=== PATIENT | female | born 2000 | race African-American/Black ===

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

== ENCOUNTER 2020-11-01 15:21 | Emergency (ER) | payer SELFPAY ==
[~2020-11-01] VITALS: Ht 162.6 cm; Wt 75.0 kg
[~2020-11-01 15:21] MED LIST: METH4TAB2 PO; TRIA15CR TP
--- NOTE | 2020-11-01 16:13 | EKG ---
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
[2020-11-01] MEDS ORDERED: ONDANSETRON PF 4 MG/2 ML VIAL. IV ONE (16:30)
[2020-11-01] MEDS ORDERED: IV NORMAL SALINE 1000ML BAG 1,000 ML IV ONE (16:30)
[2020-11-01] MEDS ORDERED: diphenhydrAMINE 50 MG/ML VIAL IVP ONE (16:45)
[2020-11-01] MEDS ORDERED: PROCHLORPERAZINE 10 MG/2 ML VIAL. IV ONE (16:45)
[2020-11-01] MEDS ORDERED: DEXAMETHASONE SOD PHOS 20 MG/5 ML VIAL. IV ONE (16:45)
--- NOTE | 2020-11-01 17:18 | RAD ---
CT HEAD/BRAIN WO Date: 11/01/2020 4:47 PM Clinical Indication: headache / Spl. Instructions: / History: Comparison: None. Technique: 5 mm axial tomographic images were obtained of the head without contrast. These were view ed on brain and bone windows. One or more of the following dose reduction techniques were utilized: A utomated exposure control (AEC), Adjustment of mA and/or kV according to patient size, Use of iterati ve reconstruction technique such as ASiR, CT scan done according to ALARA and image gently/image elizondo ly Findings: The brain parenchyma is normal in attenuation. No intra- or extra-axial mass or fluid collection. No acute hemorrhage. The ventricles are normal in size, shape, and morphology. The luis-white matter bhumika ction is normal. The subarachnoid cisterns are patent. Paranasal sinus disease with air-fluid levels in the maxillary sinuses and secretions in the frontal sinuses. The visualized portions of the orbits and globes are normal. The mastoid air cells are kenneth r. The cst topogram shows no lytic lesion or fracture. Impression: 1. No acute intracranial process. 2. Paranasal sinus disease with air-fluid levels in the maxillary sinuses and frothy secretions in th e frontal sinuses, which could represent acute sinusitis in the appropriate clinical setting Electronically signed by: Shekhar Wilson MD (11/01/2020 5:15 PM) [facility]
--- NOTE | 2020-11-01 17:37 | ED.ADGEN ---
Past Medical History Past Medical History: Migraines Additional Past Medical Histor: SYNCOPAL EPISODES Past Surgical History: Other Additional Past Surgical Histo: HERNIA Smoking Status: Current Every Day Smoker Alcohol Use: Occasionally Drug Use: None General Adult EDM: Chief Complaint: SYNCOPE HPI: HPI: Patient is a 20 year old female who presents emergency department via EMS after suffering a syncopal episode today while working at [employer]. The patient states she has had a headache in the front of her head with sensitivity to light all day. She states she was watching videos at work when she got up to get some water and the next thing she knew she was on the floor. Coworkers called the ambulance. Patient reports that the loss of consciousness was less than 1 minute. She reports having some nausea with a headache but denies any vomiting, body aches, fever, shortness of breath, cough, chest pain, abdominal pain, diarrhea, rash, or sore throat. She currently rates pain a 9 out of 10 on the pain scale, she denies any alleviating factors, light makes the pain worse. She denies any recent head injury or trauma. She denies any previous history of migraines. Review of Systems: Review of Systems: Complete ROS is negative unless otherwise noted in HPI. Current Medications: Current Medications Medications (Trade) Dose Ordered Sig/Luis Start Time Stop Time Status Last Admin Dose Admin Dexamethasone Sodium Phosphate (Decadron) 10 mg 1X ONCE 11/01/20 16:45 11/01/20 16:46 DC 11/01/20 16:50 10 MG Diphenhydramine HCl (Benadryl) 25 mg 1X ONCE 11/01/20 16:45 11/01/20 16:46 DC 11/01/20 16:50 25 MG Ketorolac Tromethamine (Toradol 30mg Vial) 30 mg 1X ONCE 11/01/20 18:30 11/01/20 18:39 DC 11/01/20 18:55 30 MG Ondansetron HCl (Zofran) 4 mg 1X ONCE 11/01/20 16:30 11/01/20 16:31 DC 11/01/20 16:49 4 MG Prochlorperazine Edisylate (Compazine) 10 mg 1X ONCE 11/01/20 16:45 11/01/20 16:46 DC 11/01/20 16:50 10 MG Sodium Chloride 1,000 ml @ 1,000 mls/hr 1X ONCE 11/01/20 16:30 11/01/20 17:29 DC 11/01/20 16:51 1,000 MLS/HR Allergies: Allergies: Allergies Coded Allergies Type Severity Reaction Last Updated Verified No Known Drug Allergies 06/30/13 No Physical Exam: PE: See Above Constitutional: Well developed, well nourished, no acute distress, non-toxic appearance. [] HENT: Normocephalic, atraumatic, bilateral external ears normal, oropharynx moist, no oral exudates, nose normal. [] Eyes: PERRLA, EOMI, conjunctiva normal, no discharge. [] Neck: Normal range of motion, no tenderness, supple, no stridor. [] Cardiovascular:Heart rate regular rhythm, no murmur [] Lungs & Thorax: Bilateral breath sounds clear to auscultation [] Abdomen: Bowel sounds normal, soft, no tenderness, no masses, no pulsatile masses. [] Skin: Warm, dry, no erythema, no rash. [] Back: No tenderness, no CVA tenderness. [] Extremities: No tenderness, no cyanosis, no clubbing, ROM intact, no edema. [] Neurologic: Alert and oriented X 3, normal motor function, normal sensory function, no focal deficits noted. [] Psychologic: Affect normal, judgement normal, mood normal. [] Current Patient Data: Labs: Laboratory Tests Test 11/01/20 16:33 POC Urine HCG, Qualitative Hcg negative (Negative) Vital Signs: Vital Signs Date Time Temp Pulse Resp B/P (MAP) Pulse Ox O2 Delivery O2 Flow Rate FiO2 11/01/20 18:39 66 16 109/69 (82) 99 Room Air 11/01/20 16:41 98.1 98.1 EKG: EK-sinus rhythm, rate 70, no STEMI, read by Dr. Lee [] Heart Score: C/O Chest Pain: No Risk Scores: Score 0 - 3: 2.5% MACE over next 6 weeks - Discharge Home Score 4 - 6: 20.3% MACE over next 6 weeks - Admit for Clinical Observation Score 7 - 10: 72.7% MACE over next 6 weeks - Early Invasive Strategies Radiology/Procedures: Radiology/Procedures: PROCEDURE: CT HEAD WO CONTRAST CT HEAD/BRAIN WO Date: 11/01/2020 4:47 PM Clinical Indication: headache / Spl. Instructions: / History: Comparison: None. Technique: 5 mm axial tomographic images were obtained of the head without contrast. These were viewed on brain and bone windows. One or more of the following dose reduction techniques were utilized: Automated exposure control (AEC), Adjustment of mA and/or kV according to patient size, Use of iterative reconstruction technique such as ASiR, CT scan done according to ALARA and image gently/image wisely Findings: The brain parenchyma is normal in attenuation. No intra- or extra-axial mass or fluid collection. No acute hemorrhage. The ventricles are normal in size, shape, and morphology. The luis-white matter junction is normal. The subarachnoid ci sterns are patent. Paranasal sinus disease with air-fluid levels in the maxillary sinuses and secretions in the frontal sinuses. The visualized portions of the orbits and globes are normal. The mastoid air cells are clear. 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 Impression: 1. No acute intracranial process. 2. Paranasal sinus disease with air-fluid levels in the maxillary sinuses and frothy secretions in the frontal sinuses, which could represent acute sinusitis in the appropriate clinical setting Electronically signed by: Shekhar Wilson MD (11/01/2020 5:15 PM) [facility] [] Course & Med Decision Making: Course & Med Decision Making Pertinent Labs and Imaging studies reviewed. (See chart for details) Patient is a 20-year-old female who presents to the emergency department evaluation following a syncopal episode. Patient reported having headache all day. CT the patient's head was negative. The patient was given a liter normal saline, 4 mg of Zofran, 10 mg of Compazine, 25 mg of Benadryl, and 10 mg of Decadron. Headache decreased to about a 7 out of 10 after those medications. Patient was given 30 mg IV Toradol and her headache went away completely. Patient was encouraged to follow-up with her primary care doctor in the next 1 to 2 days, go home and rest in a cool dark room. Return to the ER symptoms wo rsen. Patient verbalized an understanding of home care, medications, follow-up, and return to ED instructions and was in agreement with the plan of care. [] Lena Disclaimer: Dragon Disclaimer: This electronic medical record was generated, in whole or in part, using a voice recognition dictation system. Departure Departure Impression: Primary Impression: Headache Disposition: 01 HOME / SELF CARE / HOMELESS Condition: STABLE Referrals: NO PCP (PCP) Patient Instructions: General Headache Without Cause, [id number] Additional Instructions: Go home and rest in a cool dark room, limit exposure to screens, he can take Tylenol or ibuprofen as needed for pain. Follow-up with your primary care doctor in the next 1 to 2 days, return to the ER symptoms worsen. [facility] [address] [place] [address] [facility] [address] [place] [address] [facility] [address] [facility] [place] [address] [facility] [address] [place] [address] [facility] [address] [place] [address] [facility] [address] [place] [address] [facility]um[facility] [address] [place] [address] [facility] [address] [place] [address] [facility] [address] [place] [address] [facility] [address] [place] [address] Problem Qualifiers Primary Impression: Headache Headache type: unspecified Headache chronicity pattern: acute headache Intractability: not intractable Qualified Codes: R51.9 - Headache, unspecified RUDDY VINCENT EFFICIENCY MINER November 01, 2020 17:36
[2020-11-01] MEDS ORDERED: KETOROLAC 30 MG/ML VIAL. IV ONE (18:30)
[2020-11-01 18:39] VITALS: BP 109/69
== END 2020-11-01 19:22 | disposition home or self-care (01) ==
LOC: ER 15:21
DX: R51.9 Headache, unspecified (principal); F17.290 Nicotine dependence, other tobacco product, uncomplicated
CPT/HCPCS: 70450; 81025; 93005; 96361; 96374; 96375; 99285; J0780; J1100; J1200; J1885; J2405; J7030

== ENCOUNTER 2021-05-02 15:21 | Emergency (ER) | payer SELFPAY ==
[~2021-05-02] VITALS: Ht 162.6 cm; Wt 65.9 kg
[2021-05-02] MEDS ORDERED: IV NORMAL SALINE 1000ML BAG 1,000 ML IV ONE (15:45)
[2021-05-02 16:02] LABS: BASO % 1 % (0-3); EOS # 0.1 x10^3/uL (0.0-0.7); EOS % 2 % (0-3); HEMATOCRIT 34.6 % (36.0-47.0); HEMOGLOBIN 11.8 g/dL (12.0-15.5); LYMPH # 2.6 x10^3/uL (1.0-4.8); LYMPH % 51 % (24-48); MEAN CORPUSCULAR HEMOGLOBIN 28 pg (25-35); MEAN CORPUSCULAR HGB CONC 34 g/dL (31-37); MEAN CORPUSCULAR VOLUME 83 fL (79-100); MONO # 0.3 x10^3/uL (0.0-1.1); MONO % 6 % (0-9); NEUT % 40 % (31-73); PLATELET COUNT 268 x10^3/uL (140-400); RED BLOOD COUNT 4.15 x10^6/uL (3.50-5.40); RED CELL DISTRIBUTION WIDTH 12.5 % (11.5-14.5); WHITE BLOOD COUNT 5.1 x10^3/uL (4.0-11.0)
--- NOTE | 2021-05-02 16:04 | PHYS DOC ---
Past Medical History Past Medical History: Migraines Additional Past Medical Histor: SYNCOPAL EPISODES Past Surgical History: Other Additional Past Surgical Histo: HERNIA Smoking Status: Current Every Day Smoker Alcohol Use: Occasionally Drug Use: None General Adult EDM: Chief Complaint: SYNCOPE HPI: HPI: Patient is a 21 year old female who presents with states she was at work and went to get a drink and then she put her drink back down and went to walk away when she suddenly got dizzy and her vision went black. She states the next and she remembers is people standing over her on the floor. She is not on any kind of blood thinner. She denies headache, dizziness at this time, nausea, vomiting, chest pain, patient change, shortness of air, fever, cough, abdominal pain, diarrhea, focal weakness, numbness or tingling. She denies she is been sick recently. She denies feeling bad prior to this event. She denies any pain at this time. Patient has a history of syncopal episodes, migraines, hernia repair, smoking. Review of Systems: Review of Systems: Constitutional: Denies fever or chills. [] Eyes: Denies change in visual acuity. [] HENT: Denies nasal congestion or sore throat. [] Respiratory: Denies cough or shortness of breath. [] Cardiovascular: Denies chest pain or edema. [] GI: Denies abdominal pain, nausea, vomiting, bloody stools or diarrhea. [] : Denies dysuria. [] Musculoskeletal: Denies back pain or joint pain. [] Integument: Denies rash. [] Neurologic: Denies headache, focal weakness or sensory changes. +Syncope [] Endocrine: Denies polyuria or polydipsia. [] Lymphatic: Denies swollen glands. [] Psychiatric: Denies depression or anxiety. [] Heart Score: C/O Chest Pain: No Current Medications: Current Medications Medications (Trade) Dose Ordered Sig/Luis Start Time Stop Time Status Last Admin Dose Admin Sodium Chloride 1,000 ml @ 1,000 mls/hr 1X ONCE 05/02/21 15:45 05/02/21 16:44 Allergies: Allergies: Allergies Coded Allergies Type Severity Reaction Last Updated Verified No Known Drug Allergies 06/30/13 No Physical Exam: PE: Constitutional: Well developed, well nourished, no acute distress, non-toxic appearance. [] HENT: Normocephalic, atraumatic, bilateral external ears normal, oropharynx moist, no oral exudates, nose normal. [] Eyes: PERRLA, EOMI, conjunctiva normal, no discharge. [] Neck: Normal range of motion, no tenderness, supple, no stridor. [] Cardiovascular:Heart rate regular rhythm, no murmur [] Lungs & Thorax: Bilateral breath sounds clear to auscultation [] Abdomen: Bowel sounds normal, soft, no tenderness, no masses, no pulsatile masses. [] Skin: Warm, dry, no erythema, no rash. [] Back: No tenderness, no CVA tenderness. [] Extremities: No tenderness, no cyanosis, no clubbing, ROM intact, no edema. [] Neurologic: Alert and oriented X 3, normal motor function, normal sensory function, no focal deficits noted. [] Psychologic: Affect normal, judgement normal, mood normal. [] Normal physical exam EKG: EK and read by Dr. Villa as a sinus rhythm and no STEMI Radiology/Procedures: Radiology/Procedures: [] Impression: [facility] [address] [place] [address] IMAGING REPORT Signed PATIENT: ROCHELLE SARGENT AACCOUNT: [id number] : 2000 LOCATION: ER AGE: 21 SEX: F EXAM STATUS: REG ER ORD. PHYSICIAN: JUAN MERCEDES APRN REASON: syncope and fall to ground PROCEDURE: CT HEAD AND CERVICAL SPINE WO STUDY: CT head and cervical spine without contrast INDICATION: Syncope. Fall. COMPARISON: CT head 11/01/2020 TECHNIQUE: Axial CT imaging through the head and cervical spine without the use of intravenous contrast. Sagittal and coronal reformats were obtained. One or more of the following individualized dose reduction techniques were utilized for this examination: 1. Automated exposure control 2. Adjustment of the mA and/or kV according to patient size 3. Use of iterative reconstruction technique. FINDINGS: CT head: No acute intracranial hemorrhage. Pino-white matter differentiation is mainta ined. No localized mass effect, midline shift or hydrocephalus. Unremarkable orbits and scalp. No depressed calvarial fracture. No layering fluid within the partially imaged paranasal sinuses. Mild scattered mucosal thickening such as along the left aspect of the frontal sinus. Normally aerated mastoid air cells. CT cervical spine: No acute fracture or traumatic malalignment. No osseous encroachment on the central canal or neural foramina. Unremarkable paraspinous soft tissues, thyroid and lung apices. IMPRESSION: CT head: 1. No acute intracranial abnormality. CT cervical spine: 1. No acute fracture or traumatic malalignment. Electronically signed by: CASSANDRA CASTELLON MD (05/02/2021 5:41 PM) [facility] DICTATED and SIGNED BY: CASSANDRA CASTELLON MD DATE: 05/02/21 [id number] [facility] [address] [facility] [place] [address] IMAGING REPORT Signed PATIENT: ROCHELLE SARGENT AACCOUNT: [id number] : 2000 LOCATION: ER AGE: 21 SEX: F EXAM STATUS: REG ER ORD. PHYSICIAN: JUAN MERCEDES APRN REASON: syncope PROCEDURE: PORTABLE CHEST 1V XR CHEST 1V CLINICAL INDICATIONS: Reason: syncope / Spl. Instructions: / History: COMPARISON: None available. Findings: No acute lung infiltrate or pleural effusion or pulmonary edema or lung mass or pneumothorax is seen. The heart size, pulmonary vasculature, mediastinum and both gema are unremarkable. IMPRESSION: No acute radiographic abnormality is seen. Electronically signed by: Marlys Greene MD (05/02/2021 4:52 PM) [id number] DICTATED and SIGNED BY: MARLYS GREENE MD DATE: 05/02/21 [id number] Course & Med Decision Making: Course & Med Decision Making Pertinent Labs and Imaging studies reviewed. (See chart for details) See HPI. Alert and oriented x4. Ambulatory steady gait. Speaks in full clear sentences. Moving all extremities equally. No focal bony spinal tenderness. Full range of motion of the neck. No laceration, abrasion or bruising is seen to the patient's body as a whole. Range of motion of all joints and there is no deformities or swelling of any joints or extremities. Lungs are clear to all station all lobes. Vital signs within normal limits. EKG is normal sinus rhythm. She states she has no complaints at this time. She states this is happened before and it was from dehydration. Patient's urine does show ketones. She was given a bolus of normal saline. She remains asymptomatic. She states that she still feels fine. Blood work is unremarkable. EKG shows no acute findings. Patient is discharged home to follow-up with primary care physician. [] Lena Disclaimer: Lena Disclaimer: This electronic medical record was generated, in whole or in part, using a voice recognition dictation system. Departure Departure Impression: Primary Impression: Syncope Qualified Codes: R55 - Syncope and collapse Disposition: HOME / SELF CARE / HOMELESS Condition: STABLE Referrals: NO PCP (PCP) Patient Instructions: Dehydration, Adult, Syncope Additional Instructions: Follow with primary care provider. Drink plenty of fluids. Return if you have another syncopal episode. JUAN MERCEDES APRN May 02, 2021 16:04
--- NOTE | 2021-05-02 16:10 | EKG ---
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
[2021-05-02 16:22] LABS: CALCIUM 8.6 mg/dL (8.5-10.1); CREATININE 0.8 mg/dL (0.6-1.0); GFR 109.6; POTASSIUM 3.5 mmol/L (3.5-5.1)
[2021-05-02 16:29] LABS: BILIRUBIN,URINE NEGATIVE (NEG); CLARITY,URINE CLEAR; COLOR,URINE YELLOW; NITRITE,URINE NEGATIVE (NEG); PROTEIN,URINE NEGATIVE (NEG-TRACE); UROBILINOGEN,URINE 0.2 mg/dL (0.2 mg/dL)
[2021-05-02 16:29] LABS: ALBUMIN 3.6 g/dL (3.4-5.0); MAGNESIUM 1.7 mg/dL (1.8-2.4); TOTAL BILIRUBIN 0.3 mg/dL (0.2-1.0); TOTAL PROTEIN 7.2 g/dL (6.4-8.2)
[2021-05-02 16:33] LABS: BARBITURATES NEG (NEG); BENZODIAZEPINES NEG (NEG); CANNABINOIDS POS (NEG); COCAINE NEG (NEG); METHADONE NEG (NEG); OPIATES NEG (NEG); PHENCYCLIDINE NEG (NEG)
[2021-05-02 16:34] LABS: AMPHETAMINE/METHAMPHETAMINE NEG (NEG)
[2021-05-02 16:48] LABS: BACTERIA,URINE FEW /HPF (0-FEW)
[2021-05-02 16:50] LABS: RBC,URINE 0 /HPF (0-2)
--- NOTE | 2021-05-02 16:54 | RAD ---
XR CHEST 1V CLINICAL INDICATIONS: Reason: syncope / Spl. Instructions: / History: COMPARISON: None available. Findings: No acute lung infiltrate or pleural effusion or pulmonary edema or lung mass or pneumothora x is seen. The heart size, pulmonary vasculature, mediastinum and both gema are unremarkable. IMPRESSION: No acute radiographic abnormality is seen. Electronically signed by: Lamberto Greene MD (05/02/2021 4:52 PM) [id number]
--- NOTE | 2021-05-02 17:43 | RAD ---
STUDY: CT head and cervical spine without contrast INDICATION: Syncope. Fall. COMPARISON: CT head 11/01/2020 TECHNIQUE: Axial CT imaging through the head and cervical spine without the use of intravenous contra st. Sagittal and coronal reformats were obtained. One or more of the following individualized dose reduction techniques were utilized for this examinat ion: 1. Automated exposure control 2. Adjustment of the mA and/or kV according to patient size 3. Use of iterative reconstruction technique. FINDINGS: CT head: No acute intracranial hemorrhage. Pino-white matter differentiation is maintained. No localized mass effect, midline shift or hydrocephalus. Unremarkable orbits and scalp. No depressed calvarial fracture. No layering fluid within the partiall y imaged paranasal sinuses. Mild scattered mucosal thickening such as along the left aspect of the fr ontal sinus. Normally aerated mastoid air cells. CT cervical spine: No acute fracture or traumatic malalignment. No osseous encroachment on the central canal or neural f oramina. Unremarkable paraspinous soft tissues, thyroid and lung apices. IMPRESSION: CT head: 1. No acute intracranial abnormality. CT cervical spine: 1. No acute fracture or traumatic malalignment. Electronically signed by: CASSANDRA CASTELLON MD (05/02/2021 5:41 PM) [facility]
[2021-05-02 18:39] VITALS: BP 116/75
== END 2021-05-02 18:45 | disposition home or self-care (01) ==
LOC: ER 15:21
DX: R55 Syncope and collapse (principal); R42 Dizziness and giddiness; G43.909 Migraine, unspecified, not intractable, without status migrainosus; F17.200 Nicotine dependence, unspecified, uncomplicated
CPT/HCPCS: 36415; 70450; 71045; 72125; 80053; 80307; 81001; 81025; 83735; 84484; 85025; 93005; 96360; 99285; J7030